=== PATIENT | female | born 2000 | race Caucasian/White ===

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

== ENCOUNTER 2021-02-08 10:11 | Emergency (ER) | payer BC, MEDICAID ==
--- NOTE | 2021-02-08 11:05 | EDM.PDOC ---
ED HPI GENERAL MEDICAL PROBLEM - General Chief Complaint: Cardiovascular Problem Stated Complaint: CHILLS Time Seen by Provider: 02/08/21 10:52 Source of Information: Reports: Patient, RN Notes Reviewed - History of Present Illness INITIAL COMMENTS - FREE TEXT/NARRATIVE: 20 yr old female has been sent over from the [facility] unit after starting to have some chills this morning during her dialysis run. It is reported that the nailbeds of her L hand became dusky. She was not having chest pain or difficulty breathing. She has also started to have a mild cough today. No abd pain, nausea, vomiting or diarrhea. - Related Data Allergies Allergy/AdvReac Type Severity Reaction Status Date / Time Latex, Natural Rubber Allergy Severe only as Verified 02/08/21 10:50 precaution due to numerous surgeries chlorhexidine Allergy Intermediate Rash Verified 02/08/21 10:50 Sulfa (Sulfonamide Allergy Intermediate Rash Verified 02/08/21 10:50 Antibiotics) Home Meds: Home Meds polyethylene glycoL 3350 [MiraLAX] 17 gm PO BEDTIME PRN 08/31/13 [History] Labetalol [Normodyne] 100 mg PO DAILY 04/17/20 [History] Cholecalciferol (Vitamin D3) [Vitamin D] 5,000 unit PO DAILY 05/31/20 [History] Amoxicillin 500 mg PO ASDIRECTED 09/15/20 [History] Fluticasone Propionate [Flonase] 16 gm NS DAILY 09/15/20 [History] Ondansetron [Zofran] 4 mg PO ASDIRECTED 09/15/20 [History] lamoTRIgine [Lamictal] 125 mg PO DAILY 09/15/20 [History] traZODone HCl [Trazodone HCl] 50 mg PO BEDTIME 09/15/20 [History] Past Medical History HEENT History: Reports: Impaired Vision Other HEENT History: Wears glasses, cleft lip and palate Cardiovascular History: Reports: Hypertension Genitourinary History: Reports: Chronic Renal Insuffiency, Dialysis, Other (See Below) Other Genitourinary History: Anatoliy and matrofinof Neurological History: Reports: Seizure, Other (See Below) 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 Denies: Fever HEENT: Reports: No Symptoms Respiratory: Reports: Cough (mild occasional). Denies: Shortness of Breath, Pleuritic Chest Pain Cardiovascular: Denies: Chest Pain GI/Abdominal: Denies: Abdominal Pain, Nausea, Vomiting Musculoskeletal: Reports: No Symptoms Skin: Denies: Rash Neurological: Reports: No Symptoms ED EXAM, GENERAL - Physical Exam Exam: See Below General Appearance: Alert, No Apparent Distress Head: Atraumatic Neck: Supple, Other Respiratory/Chest: No Respiratory Distress, Lungs Clear, Normal Breath Sounds. No: Rhonchi, Wheezing Cardiovascular: Tachycardia Extremities: Normal Inspection. No: Pedal Edema, Leg Pain Skin Exam: Warm, Dry, Normal Color Course - Vital Signs Last Recorded V/S: Last Vital Signs Temp 98.4 F 02/08/21 10:47 Pulse 118 H 02/08/21 10:47 Resp 18 02/08/21 10:47 BP 109/64 02/08/21 10:47 Pulse Ox 98 02/08/21 10:47 - Orders/Labs/Meds Orders: Active Orders 24 hr Category Date Time Status BLOOD CULTURE [MREF] Stat Lab 02/08/21 11:46 Received CRP [C-REACTIVE PROTEIN] [CHEM] Routine Lab 02/08/21 11:46 Received Labs: Laboratory Tests 02/08/21 02/08/21 02/08/21 Range/Units 11:17 11:46 11:46 WBC 3.82 L (3.98-10.04) K/mm3 RBC 3.62 L (3.98-5.22) M/mm3 Hgb 10.7 L D (11.2-15.7) gm/dl Hct 33.8 L (34.1-44.9) % MCV 93.4 D (79.4-94.8) fl MCH 29.6 (25.6-32.2) pg MCHC 31.7 L (32.2-35.5) g/dl RDW Std Deviation 40.9 (36.4-46.3) fL Plt Count 168 L D (182-369) K/mm3 MPV 9.2 L (9.4-12.3) fl Neut % (Auto) 88.8 H (34.0-71.1) % Lymph % (Auto) 6.5 L (19.3-51.7) % [place] % (Auto) 4.7 (4.7-12.5) % Eos % (Auto) 0 L (0.7-5.8) Baso % (Auto) 0.0 L (0.1-1.2) % Neut # (Auto) 3.39 (1.56-6.13) K/mm3 Lymph # (Auto) 0.25 L (1.18-3.74) K/mm3 [place] # (Auto) 0.18 L (0.24-0.36) K/mm3 Eos # (Auto) 0.00 L (0.04-0.36) K/mm3 Baso # (Auto) 0.00 L (0.01-0.08) K/mm3 Sodium 140 (136-145) mEq/L Potassium 3.5 (3.5-5.1) mEq/L Chloride 98 (98-107) mEq/L Carbon Dioxide 31 (21-32) mEq/L Anion Gap 14.5 (5-15) BUN 16 (7-18) mg/dL Creatinine 2.7 H D (0.55-1.02) mg/dL Est Cr Clr Drug Dosing 31.37 mL/min Estimated GFR (MDRD) 23 (>60) mL/min BUN/Creatinine Ratio 5.9 L (14-18) Glucose 83 (70-99) mg/dL Calcium 8.8 (8.5-10.1) mg/dL Total Bilirubin 0.6 (0.2-1.0) mg/dL AST 16 (15-37) U/L ALT 21 (14-59) U/L Alkaline Phosphatase 76 (46-116) U/L Total Protein 6.8 (6.4-8.2) g/dl Albumin 3.8 (3.4-5.0) g/dl Globulin 3.0 gm/dL Albumin/Globulin Ratio 1.3 (1-2) SARS-CoV-2 RNA (BLAZE) Positive H (NEGATIVE) - Re-Assessments/Exams Free Text/Narrative Re-Assessment/Exam: 02/08/21 12:57 her covid screen has come back positive. She is in no respiratory distress here in the ED. Sats are running 99 %. CXR shows possible what looks like slight infiltrate L lower lobe. Radiologist is also reporting slight density R mid and lower lungfield. Labs otherwise relatively OK. I have offered her IV antibody treatment, she declines. We will let [facility] know so they can be aware. Departure - Departure Time of Disposition: 12:58 Disposition: Home, Self-Care 01 Condition: Fair Clinical Impression: COVID-19 virus infection Instructions: COVID-19 Referrals: Shirlene Sutton PA-C [Primary Care Provider] - Forms: ED Department Discharge Additional Instructions: Your covid screen has come back positive. Self isolate for at least 10 days, 14 preferable. Continue dialysis on your regular schedule. If you decide you want to get the IV antibody therapy call ED to check on availability before coming but that is an option for you, best to get that early in the course of your illness rather than wait until later. Return to ED as needed, especially for difficulty breathing. Sepsis Event Note (ED) - Evaluation Sepsis Screening Result: No Definite Risk - Focused Exam Vital Signs: Vital Signs Temp Pulse Resp BP Pulse Ox 02/08/21 10:47 98.4 F 118 H 18 109/64 98 - My Orders Last 24 Hours: My Active Orders 02/08/21 11:46 BLOOD CULTURE [MREF] Stat CRP [C-REACTIVE PROTEIN] [CHEM] Routine - Assessment/Plan Last 24 Hours: My Active Orders 02/08/21 11:46 BLOOD CULTURE [MREF] Stat CRP [C-REACTIVE PROTEIN] [CHEM] Routine
--- NOTE | 2021-02-08 11:26 | CR ---
Chest: Portable view of the chest was obtained. Comparison: Prior chest x-ray of 05/31/20. Heart size and mediastinum are within normal limits. Possible early parenchymal change is seen at the left base as well as within the right mid and lower lung. Lungs otherwise are clear. Bony structures show nothing acute. Impression: 1. Possible early parenchymal change within the right mid and lower lung and left lower lung. Difficult to exclude mild areas of early pneumonia. Diagnostic code #3
== END 2021-02-08 13:35 | disposition home or self-care (01) ==
LOC: JD.ED 10:11
DX: U07.1 COVID-19 (principal); I12.9 Hypertensive chronic kidney disease with stage 1 through stage 4 chronic kidney disease, or unspecified chronic kidney disease; N18.9 Chronic kidney disease, unspecified; Z91.040 Latex allergy status; Z88.2 Allergy status to sulfonamides; Z88.8 Allergy status to other drugs, medicaments and biological substances; Z79.899 Other long term (current) drug therapy
CPT/HCPCS: 36415; 71045; 71045-26; 80053; 85025; 86140; 87040; 99283-25; U0002

== ENCOUNTER 2021-02-10 07:21 | Emergency (ER) | payer BC, MEDICAID ==
[2021-02-10] MEDS ORDERED: methylPREDNISolone Sodium Succinate 125 MG/2 ML SDV IVPUSH PRN (07:53)
[2021-02-10] MEDS ORDERED: diphenhydrAMINE 50 MG/ML SDV IVPUSH PRN (07:53)
[2021-02-10] MEDS ORDERED: EPINEPHrine 1 MG/ML SDV IM PRN (07:53)
[2021-02-10] MEDS ORDERED: Famotidine 20 MG/2 ML SDV IVPUSH PRN (07:53)
--- NOTE | 2021-02-10 07:57 | EDM.PDOC ---
ED HPI GENERAL MEDICAL PROBLEM - General Chief Complaint: Respiratory Problem Stated Complaint: COVID +/REQUESTING INFUSION Time Seen by Provider: 02/10/21 07:45 Source of Information: Reports: Patient History Limitations: Reports: No Limitations - History of Present Illness INITIAL COMMENTS - FREE TEXT/NARRATIVE: Patient 20-year-old female presenting to the emergency room for antibiotic infusion. Patient has a past medical history of chronic kidney disease and is on hemodialysis. Patient is on a Sunday schedule. Last dialysis was done on Sunday. Patient was here on February 08 when she tested positive for Covid after developing chills during her dialysis session. Patient states she started feeling some increasing shortness of breath last night denies any chest pain. Otherwise, patient complains of fatigue and generalized weakness. - Related Data Allergies Allergy/AdvReac Type Severity Reaction Status Date / Time chlorhexidine Allergy Severe Rash Verified 02/10/21 07:37 Latex, Natural Rubber Allergy Severe only as Verified 02/10/21 07:37 precaution due to numerous surgeries Sulfa (Sulfonamide Allergy Severe Rash Verified 02/10/21 07:37 Antibiotics) Chloraprep Allergy Severe Rash Uncoded 02/10/21 07:37 Home Meds: Home Meds polyethylene glycoL 3350 [MiraLAX] 17 gm PO BEDTIME PRN 08/31/13 [History] Labetalol [Normodyne] 100 mg PO DAILY 04/17/20 [History] Fluticasone Propionate [Flonase] 16 gm NS DAILY 09/15/20 [History] Ondansetron [Zofran] 4 mg PO ASDIRECTED 09/15/20 [History] lamoTRIgine [Lamictal] 125 mg PO DAILY 09/15/20 [History] traZODone HCl [Trazodone HCl] 50 mg PO BEDTIME 09/15/20 [History] Non-Formulary Medication [NF Drug] 0 ml .XX BEDTIME 02/10/21 [History] Past Medical History HEENT History: Reports: Impaired Vision Other HEENT History: Wears glasses, cleft lip and palate Cardiovascular History: Reports: Hypertension Genitourinary History: Reports: Chronic Renal Insuffiency, Dialysis, Other (See Below) Other Genitourinary History: Anatoliy and matrofinof Neurological History: Reports: Seizure, Other (See Below) Other Neuro History: 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, Spina bifida, epilepsy Hematologic History: Reports: Blood Transfusion(s) - Infectious Disease History Infectious Disease History: Reports: Novel Coronavirus - Past Surgical History HEENT Surgical History: Reports: Myringotomy w Tube(s) GI Surgical History: Reports: EGD Social & Family History - Family History Family Medical History: No Pertinent Family History - Tobacco Use Tobacco Use Status *Q: Never Tobacco User - Caffeine Use Caffeine Use: Reports: Energy Drinks, Soda - Recreational Drug Use Recreational Drug Use: No - Living Situation & Occupation Occupation: Student ED ROS GENERAL - Review of Systems Review Of Systems: See Below Free Text/Narrative/Comment: In addition to that documented in the HPI above, the additional ROS was obtained: Constitutional: Positive for fevers or chills Eyes: Denies vision changes ENMT: Denies sore throat CV: Denies chest pain Resp: Per HPI GI: Denies vomiting or diarrhea : Denies painful urination MSK: Denies recent trauma Skin: Denies new rashes Neuro: Denies new numbness or tingling or weakness Endocrine: Denies unexpected weight loss Heme: Denies bleeding disorders ED EXAM, GENERAL - Physical Exam Exam: See Below Free Text/Narrative:: I have reviewed the triage vital signs. Pulse oxygenation is 100% on room air indicating adequate oxygenation. Const: Well nourished, well developed, appears stated age Eyes: Pupils Equal and reactive to light bilaterally, no conjunctival injection HENT: No signs of trauma or swelling, Neck supple without meningismus CV: Tachycardia with regular rhythm, Warm, well-perfused extremities RESP: Unlabored respiratory effort GI: soft, non-tender, non-distended, no masses MSK: No gross deformities appreciated Skin: Warm, dry. 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 Sensation and motor function of extremities grossly intact. Psych: Appropriate mood and affect. #1 Interpretation EKG Date: 02/10/21 Time: 08:10 Rhythm: NSR Rate (Beats/Min): 116 [place]: RAD-Right [place] Deviation P-Wave: Present QRS: Normal ST-T: Normal QT: Normal Comparison: NA - No Prior EKG Course - Vital Signs Last Recorded V/S: Last Vital Signs Temp 36.6 C 02/10/21 07:33 Pulse 117 H 02/10/21 09:00 Resp 16 02/10/21 09:00 BP 131/85 02/10/21 09:00 Pulse Ox 97 02/10/21 09:00 - Orders/Labs/Meds Orders: Active Orders 24 hr Category Date Time Status Vital Signs [RC] Q15M Care 02/10/21 07:54 Active EPINEPHrine [Adrenalin] Med 02/10/21 07:53 Active 0.3 mg IM ONETIME PRN Famotidine [Pepcid] Med 02/10/21 07:53 Active 20 mg IVPUSH ONETIME PRN Sodium Chloride 0.9% [Saline Flush] Med 02/10/21 08:00 Active 30 ml FLUSH ASDIRECTED diphenhydrAMINE [Benadryl] Med 02/10/21 07:53 Active 50 mg IVPUSH ONETIME PRN methylPREDNISolone Sod Succ [Solu-MEDROL] Med 02/10/21 07:53 Active 125 mg IVPUSH ONETIME PRN Medication Orders Diphenhydramine HCl (Diphenhydramine 50 Mg/Ml Sdv) 50 mg IVPUSH ONETIME PRN PRN Reason: hypersensitivity reaction Epinephrine HCl (Epinephrine 1 Mg/Ml Sdv) 0.3 mg IM ONETIME PRN PRN Reason: hypersensitivity reaction Famotidine (Famotidine 20 Mg/2 Ml Sdv) 20 mg IVPUSH ONETIME PRN PRN Reason: hypersensitivity reaction Methylprednisolone Sodium Succinate (Methylprednisolone Sodium Succinate 125 Mg/2 Ml Sdv) 125 mg IVPUSH ONETIME PRN PRN Reason: hypersensitivity reaction Sodium Chloride (Sodium Chloride 0.9% 10 Ml Syringe) 30 ml FLUSH ASDIRECTED JONATHAN Labs: Laboratory Tests 02/10/21 02/10/21 02/10/21 Range/Units 07:55 07:55 07:55 WBC 2.71 L (3.98-10.04) K/mm3 RBC 3.63 L (3.98-5.22) M/mm3 Hgb 10.9 L (11.2-15.7) gm/dl Hct 35.3 (34.1-44.9) % MCV 97.2 H D (79.4-94.8) fl MCH 30.0 (25.6-32.2) pg MCHC 30.9 L (32.2-35.5) g/dl RDW Std Deviation 43.8 (36.4-46.3) fL Plt Count 142 L (182-369) K/mm3 MPV 9.8 (9.4-12.3) fl Neut % (Auto) 80.1 H (34.0-71.1) % Lymph % (Auto) 12.5 L (19.3-51.7) % [place] % (Auto) 7.4 (4.7-12.5) % Eos % (Auto) 0 L (0.7-5.8) Baso % (Auto) 0.0 L (0.1-1.2) % Neut # (Auto) 2.17 (1.56-6.13) K/mm3 Lymph # (Auto) 0.34 L (1.18-3.74) K/mm3 [place] # (Auto) 0.20 L (0.24-0.36) K/mm3 Eos # (Auto) 0.00 L (0.04-0.36) K/mm3 Baso # (Auto) 0.00 L (0.01-0.08) K/mm3 PT 10.3 (9.7-12.0) SECONDS INR 0.93 Sodium 138 (136-145) mEq/L Potassium 3.6 (3.5-5.1) mEq/L Chloride 99 (98-107) mEq/L Carbon Dioxide 26 (21-32) mEq/L Anion Gap 16.6 H (5-15) BUN 39 H (7-18) mg/dL Creatinine 6.1 H D (0.55-1.02) mg/dL Est Cr Clr Drug Dosing 11.73 mL/min Estimated GFR (MDRD) 9 (>60) mL/min BUN/Creatinine Ratio 6.4 L (14-18) Glucose 102 H (70-99) mg/dL Calcium 8.6 (8.5-10.1) mg/dL Total Bilirubin 0.4 (0.2-1.0) mg/dL AST 26 (15-37) U/L ALT 30 (14-59) U/L Alkaline Phosphatase 76 (46-116) U/L Total Protein 6.7 (6.4-8.2) g/dl Albumin 3.7 (3.4-5.0) g/dl Globulin 3.0 gm/dL Albumin/Globulin Ratio 1.2 (1-2) Meds: Medications Generic Name Dose Route Start Last Admin Trade Name Freq PRN Reason Stop Dose Admin Diphenhydramine HCl 50 mg 02/10/21 07:53 Diphenhydramine 50 Mg/Ml Sdv IVPUSH ONETIME PRN hypersensitivity reaction Epinephrine HCl 0.3 mg 02/10/21 07:53 Epinephrine 1 Mg/Ml Sdv IM ONETIME PRN hypersensitivity reaction Famotidine 20 mg 02/10/21 07:53 Famotidine 20 Mg/2 Ml Sdv IVPUSH ONETIME PRN hypersensitivity reaction Methylprednisolone Sodium Succinate 125 mg 02/10/21 07:53 Methylprednisolone Sodium Succinate 125 Mg/2 Ml Sdv IVPUSH ONETIME PRN hypersensitivity reaction Sodium Chloride 30 ml 02/10/21 08:00 Sodium Chloride 0.9% 10 Ml Syringe FLUSH ASDIRECTED JONATHAN Discontinued Medications Generic Name Dose Route Start Last Admin Trade Name Freq PRN Reason Stop Dose Admin SOTROVIMAB 500 mg/ Sodium 108 mls @ 216 mls/hr 02/10/21 08:30 02/10/21 08:15 Chloride IV 02/10/21 08:59 216 mls/hr ONETIME ONE Administration Departure - Departure Time of Disposition: 09:37 Disposition: Home, Self-Care 01 Clinical Impression: COVID-19 - Discharge Information *PRESCRIPTION DRUG MONITORING PROGRAM REVIEWED*: Not Applicable *COPY OF PRESCRIPTION DRUG MONITORING REPORT IN PATIENT PINA: Not Applicable Referrals: PCP,None [Primary Care Provider] - Forms: ED Department Discharge Sepsis Event Note (ED) - Evaluation Sepsis Screening Result: No Definite Risk - Focused Exam Vital Signs: Vital Signs Temp Pulse Resp BP Pulse Ox 02/10/21 09:00 117 H 16 131/85 97 02/10/21 08:45 120 H 16 131/84 98 02/10/21 08:30 119 H 18 123/89 94 L 02/10/21 08:15 118 H 16 126/82 94 L 02/10/21 07:33 36.6 C 126 H 18 126/73 100 - My Orders Last 24 Hours: My Active Orders 02/10/21 07:53 EPINEPHrine [Adrenalin] 0.3 mg IM ONETIME PRN Famotidine [Pepcid] 20 mg IVPUSH ONETIME PRN diphenhydrAMINE [Benadryl] 50 mg IVPUSH ONETIME PRN methylPREDNISolone Sod Succ [Solu-MEDROL] 125 mg IVPUSH ONETIME PRN 02/10/21 07:54 Vital Signs [RC] Q15M 02/10/21 08:00 Sodium Chloride 0.9% [Saline Flush] 30 ml FLUSH ASDIRECTED - Assessment/Plan Last 24 Hours: My Active Orders 02/10/21 07:53 EPINEPHrine [Adrenalin] 0.3 mg IM ONETIME PRN Famotidine [Pepcid] 20 mg IVPUSH ONETIME PRN diphenhydrAMINE [Benadryl] 50 mg IVPUSH ONETIME PRN methylPREDNISolone Sod Succ [Solu-MEDROL] 125 mg IVPUSH ONETIME PRN 02/10/21 07:54 Vital Signs [RC] Q15M 02/10/21 08:00 Sodium Chloride 0.9% [Saline Flush] 30 ml FLUSH ASDIRECTED Assessment:: Patient is a 20-year-old female end-stage renal disease presenting for request of antibiotic infusion. Patient needs criteria based on chronic kidney disease. In the emergency room patient demonstrated tachycardia in the 110-115 range. Pulse oxygenation was 100% on room air. No respiratory distress noted. No chest pain reported. Differential diagnosis considered for this patient include Covid pneumonia, pulmonary embolism, pulmonary edema, electrolyte abnormality. Patient patient's underlying diagnosis could be pneumonia as likely etiology of patient's tachycardia. It was noted she was tachycardic on visit on February 08. Electrolytes reviewed did not demonstrate any specific abnormality. Pancytopenia noted consistent with Covid infection. Patient received the antibody infusion without abnormality or difficulty/complication. Dialysis center was called and patient is able to go to dialysis at noon today. No indication for emergent dialysis at this time. Patient given these instructions and appropriate return precautions. I spoke with patient to provide information about antibiotic infusion. I offered them the patient and caregiver EUA back she to read and review state of the drug has been approved for emergency use authorization and has not been fully FDA reviewed or approved. The patient meets the EUA requirements I discussed the other potential treatment options that are currently not FDA approved to treat COVID-19. Offered opportunity to ask questions and all questions were answered Patient voiced understanding and agreed to proceed with treatment for COVID-19
[2021-02-10] MEDS ORDERED: Sodium Chloride 0.9% 10 ML Syringe FLUSH SCH (08:00)
== END 2021-02-10 09:55 | disposition home or self-care (01) ==
LOC: JD.ED 07:21
DX: U07.1 COVID-19 (principal); I12.0 Hypertensive chronic kidney disease with stage 5 chronic kidney disease or end stage renal disease; N18.6 End stage renal disease; R56.9 Unspecified convulsions; Z88.8 Allergy status to other drugs, medicaments and biological substances; Z91.040 Latex allergy status; Z88.2 Allergy status to sulfonamides; Z79.899 Other long term (current) drug therapy
CPT/HCPCS: 36415; 80053; 85025; 85610; 93005; 99285; M0247; Q0247

== ENCOUNTER 2021-03-28 12:43 | Emergency (ER) | payer BC, MEDICAID ==
[2021-03-28] MEDS ORDERED: LORazepam 1 MG Tab PO ONE (14:00)
--- NOTE | 2021-03-28 14:32 | EDM.PDOCBH ---
ED HPI GENERAL MEDICAL PROBLEM - General Chief Complaint: Behavioral/Psych Stated Complaint: ANXIETY Time Seen by Provider: 03/28/21 13:20 Source of Information: Reports: Patient History Limitations: Reports: No Limitations - History of Present Illness INITIAL COMMENTS - FREE TEXT/NARRATIVE: The patient presents for anxiety. This started over a week ago. She was at work and it got worse. She has no depression or suicidal ideation. She was on seroquel but she cannot afford it. She has no other symptoms like fever, chills, cough, chest pain, or abdominal pain. Onset: Gradual Duration: Week(s): Severity: Moderate Improves with: Reports: None Worsens with: Reports: None Associated Symptoms: Reports: No Other Symptoms - Related Data Allergies Allergy/AdvReac Type Severity Reaction Status Date / Time chlorhexidine Allergy Severe Rash Verified 03/28/21 13:21 Latex, Natural Rubber Allergy Severe only as Verified 03/28/21 13:21 precaution due to numerous surgeries Sulfa (Sulfonamide Allergy Severe Rash Verified 03/28/21 13:21 Antibiotics) Chloraprep Allergy Severe Rash Uncoded 03/28/21 13:21 Home Meds: Home Meds polyethylene glycoL 3350 [MiraLAX] 17 gm PO BEDTIME PRN 08/31/13 [History] Labetalol [Normodyne] 100 mg PO DAILY 04/17/20 [History] Fluticasone Propionate [Flonase] 16 gm NS DAILY 09/15/20 [History] Ondansetron [Zofran] 4 mg PO ASDIRECTED 09/15/20 [History] lamoTRIgine [Lamictal] 125 mg PO DAILY 09/15/20 [History] traZODone HCl [Trazodone HCl] 50 mg PO BEDTIME 09/15/20 [History] Non-Formulary Medication [NF Drug] 0 ml .XX BEDTIME 02/10/21 [History] LORazepam [Ativan] 1 mg PO Q8H PRN #10 tablet 03/28/21 [Rx] QUEtiapine Fumarate [Quetiapine Fumarate ER] 25 mg PO ASDIRECTED PRN 03/28/21 [ History] QUEtiapine [SEROquel] 100 mg PO BEDTIME 03/28/21 [History] Testosterone Cypionate 0.5 mg SQ ASDIRECTED 03/28/21 [History] Past Medical History HEENT History: Reports: Impaired Vision Other HEENT History: Wears glasses, cleft lip and palate Cardiovascular History: Reports: Hypertension Respiratory History: Reports: Pneumonia, Recurrent, Other (See Below) Other Respiratory History: COVID Gastrointestinal History: Reports: Cholelithiasis Genitourinary History: Reports: Chronic Renal Insuffiency, Dialysis, Urinary Incontinence, Other (See Below) Other Genitourinary History: Anatoliy and matrofinof Neurological History: Reports: Seizure, Other (See Below) 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 Musculoskeletal Surgical History: Reports: Other (See Below) Other Musculoskeletal Surgeries/Procedures:: bilateral hand surgery. Social & Family History - Family History Family Medical History: No Pertinent Family History - Tobacco Use Tobacco Use Status *Q: Never Tobacco User Second Hand Smoke Exposure: No - Caffeine Use Caffeine Use: Reports: Coffee, Energy Drinks, Soda - Recreational Drug Use Recreational Drug Use: No - Living Situation & Occupation Occupation: Student ED ROS GENERAL - Review of Systems Review Of Systems: See Below Constitutional: Reports: No Symptoms HEENT: Reports: No Symptoms Respiratory: Reports: No Symptoms Cardiovascular: Reports: No Symptoms Endocrine: Reports: No Symptoms GI/Abdominal: Reports: No Symptoms : Reports: No Symptoms Musculoskeletal: Reports: No Symptoms Psychiatric: Reports: Anxiety ED EXAM, BEHAVIORAL HEALTH - Physical Exam Exam: See Below Exam Limited By: No Limitations General Appearance: Alert, No Apparent Distress Ears: Normal External Exam Nose: Normal Inspection Head: Atraumatic, Normocephalic Neck: Normal Inspection Respiratory/Chest: No Respiratory Distress, Lungs Clear, Normal Breath Sounds Cardiovascular: Regular Rate, Rhythm, No Edema, No Murmur GI/Abdominal: Soft, Non-Tender, No Organomegaly Rectal (Female) Exam: Normal Exam Back Exam: Normal Inspection Extremities: Normal Inspection COURSE, BEHAVIORAL HEALTH COMP - Course Vital Signs: Last Vital Signs Temp 97.3 F 03/28/21 13:20 Pulse 80 03/28/21 13:20 Resp 16 03/28/21 13:20 BP 129/79 03/28/21 13:20 Pulse Ox 95 03/28/21 13:20 Orders, Labs, Meds: Medications Discontinued Medications Generic Name Dose Route Start Last Admin Trade Name Freq PRN Reason Stop Dose Admin Lorazepam 1 mg 03/28/21 14:00 03/28/21 14:11 Lorazepam 1 Mg Tab PO 03/28/21 14:01 1 mg ONETIME ONE Administration Re-Assessment/Re-Exam: I ordered some ativan for her. I will give her a few ativan for home. Departure - Departure Time of Disposition: 14:35 Disposition: Home, Self-Care 01 Condition: Good Clinical Impression: Anxiety - Discharge Information *PRESCRIPTION DRUG MONITORING PROGRAM REVIEWED*: Not Applicable *COPY OF PRESCRIPTION DRUG MONITORING REPORT IN PATIENT PINA: Not Applicable Prescriptions: LORazepam [Ativan] 1 mg PO Q8H PRN #10 tablet PRN Reason: Anxiety Referrals: PCP,None [Primary Care Provider] - Additional Instructions: Take the ativan every 8 hours as needed for anxiety. Follow up with your counselor before April 15 if possible. Please return if you are worse. Sepsis Event Note (ED) - Evaluation Sepsis Screening Result: No Definite Risk - Focused Exam Vital Signs: Vital Signs Temp Pulse Resp BP Pulse Ox 03/28/21 13:20 97.3 F 80 16 129/79 95
== END 2021-03-28 14:45 | disposition home or self-care (01) ==
LOC: JD.ED 12:43
DX: F41.9 Anxiety disorder, unspecified (principal); I12.9 Hypertensive chronic kidney disease with stage 1 through stage 4 chronic kidney disease, or unspecified chronic kidney disease; N18.9 Chronic kidney disease, unspecified; Z88.5 Allergy status to narcotic agent; Z88.2 Allergy status to sulfonamides; Z91.040 Latex allergy status; Z88.4 Allergy status to anesthetic agent; Z86.16 Personal history of COVID-19
CPT/HCPCS: 99283; A9270

== ENCOUNTER 2021-05-05 12:10 | Emergency (ER) | payer BC, MEDICAID | END 2021-05-05 12:50 | disposition left against medical advice (07) | LOC: JD.ED 12:10 | DX: Z53.21 Procedure and treatment not carried out due to patient leaving prior to being seen by health care provider (principal) ==

== ENCOUNTER 2021-06-06 16:02 | Emergency (ER) | payer BC, MEDICAID ==
[2021-06-06] MEDS ORDERED: LORazepam 0.5 MG Tab PO ONE (17:08)
== END 2021-06-06 18:45 | disposition home or self-care (01) ==
LOC: JD.ED 16:02
DX: F41.9 Anxiety disorder, unspecified (principal); I10 Essential (primary) hypertension; Z86.16 Personal history of COVID-19; Z91.040 Latex allergy status; Z88.2 Allergy status to sulfonamides; Z88.8 Allergy status to other drugs, medicaments and biological substances; Z79.899 Other long term (current) drug therapy
CPT/HCPCS: 71045; 93005; 99283; A9270; 93010

== ENCOUNTER 2021-06-22 13:38 | Emergency (ER) | payer BC, MEDICAID ==
[2021-06-22] MEDS ORDERED: Sodium Chloride 0.9% 10 ML Syringe FLUSH PRN (15:40)
[2021-06-22] MEDS ORDERED: Ondansetron 4 MG/2 ML SDV IVPUSH ONE (15:40)
[2021-06-22] MEDS ORDERED: HYDROmorphone 1 MG/ML Syringe IVPUSH STA (15:40)
[2021-06-22] MEDS ORDERED: Sodium Chloride 0.9% 1,000 ML IV SCH (15:45)
[2021-06-22] MEDS ORDERED: Iopamidol 612 MG/ML 100 ML Bottle IVPUSH ONE (15:47)
[2021-06-22] MEDS ORDERED: Sodium Chloride 0.9% 10 ML Syringe FLUSH ONE (15:47)
== END 2021-06-22 17:43 | disposition home or self-care (01) ==
LOC: JD.ED 13:38
DX: K82.9 Disease of gallbladder, unspecified (principal); I12.9 Hypertensive chronic kidney disease with stage 1 through stage 4 chronic kidney disease, or unspecified chronic kidney disease; N18.9 Chronic kidney disease, unspecified; Z88.1 Allergy status to other antibiotic agents; Z91.040 Latex allergy status; Z88.2 Allergy status to sulfonamides; Z99.2 Dependence on renal dialysis
CPT/HCPCS: 36415; 74177; 80053; 81001; 82977; 83690; 85025; 86140; 96374; 96375; 99284; J1170; J2405; J7030; Q9967

== ENCOUNTER 2021-07-27 10:18 | Emergency (ER) | payer BC, MEDICAID | END 2021-07-27 11:54 | disposition home or self-care (01) | LOC: JD.ED 10:18 | DX: T42.4X2A Poisoning by benzodiazepines, intentional self-harm, initial encounter (principal); I12.9 Hypertensive chronic kidney disease with stage 1 through stage 4 chronic kidney disease, or unspecified chronic kidney disease; N18.9 Chronic kidney disease, unspecified; Z91.040 Latex allergy status; Z88.2 Allergy status to sulfonamides; Z88.8 Allergy status to other drugs, medicaments and biological substances; Z86.16 Personal history of COVID-19 | CPT/HCPCS: 99284 ==

== ENCOUNTER 2021-12-17 11:38 | Emergency (ER) | payer BC, MEDICAID ==
[2021-12-17] MEDS ORDERED: Sodium Chloride 0.9% 10 ML Syringe FLUSH PRN (12:02)
== END 2021-12-17 13:34 | disposition home or self-care (01) ==
LOC: JD.ED 11:38
DX: R56.9 Unspecified convulsions (principal); F17.210 Nicotine dependence, cigarettes, uncomplicated; Z91.040 Latex allergy status; Z88.8 Allergy status to other drugs, medicaments and biological substances; Z88.2 Allergy status to sulfonamides; Z79.899 Other long term (current) drug therapy; Z86.16 Personal history of COVID-19
CPT/HCPCS: 36415; 80053; 83735; 85025; 93005; 99284; J3490

== ENCOUNTER 2022-01-22 00:10 | Emergency (ER) | payer BC, MEDICAID | END 2022-01-22 00:19 | disposition left against medical advice (07) | LOC: EDSEX → JD.ED 00:10 → MERGE 00:10 → JD.ED 00:19 | DX: Z53.21 Procedure and treatment not carried out due to patient leaving prior to being seen by health care provider (principal) ==

== ENCOUNTER 2022-01-22 11:07 | Emergency (ER) | payer BC, MEDICAID ==
[2022-01-22 12:28] LABS: ESTIMATED GFR 8 mL/min (>60)
== END 2022-01-22 13:10 | disposition home or self-care (01) ==
LOC: JD.ED 11:07
DX: R07.89 Other chest pain (principal); Z91.040 Latex allergy status; Z88.8 Allergy status to other drugs, medicaments and biological substances; Z88.2 Allergy status to sulfonamides; Z79.899 Other long term (current) drug therapy; Z86.16 Personal history of COVID-19
CPT/HCPCS: 36415; 71045; 71045-26; 80053; 84484; 85025; 93005; 93010; 99284; 99285

== ENCOUNTER 2022-01-25 07:40 | Emergency (ER) | payer BC, MEDICAID ==
[2022-01-25] MEDS ORDERED: Alum Hydrox/Mag Hydrox/Simeth 30 ML, Lidocaine 2% 15 ML PO ONE ×2 (08:19)
[2022-01-25] MEDS ORDERED: Famotidine 10 MG Tab PO ONE (08:19)
[2022-01-25] MEDS ORDERED: Famotidine 20 MG Tab ONE (08:24)
[2022-01-25] MEDS ORDERED: Lidocaine 2% Viscous Solution 15 ML UD ONE (08:24)
[2022-01-25] MEDS ORDERED: Aluminum Hydroxide/Magnesium Hydroxide/Simethicone Susp 30 ML Cup ONE (08:24)
== END 2022-01-25 10:40 | disposition home or self-care (01) ==
LOC: JD.ED 07:40
DX: N39.0 Urinary tract infection, site not specified (principal); I10 Essential (primary) hypertension; Z91.040 Latex allergy status; Z88.8 Allergy status to other drugs, medicaments and biological substances; Z88.2 Allergy status to sulfonamides; Z88.1 Allergy status to other antibiotic agents; Z79.899 Other long term (current) drug therapy; Z86.16 Personal history of COVID-19; Z90.49 Acquired absence of other specified parts of digestive tract
CPT/HCPCS: 36415; 74176; 80053; 81001; 83690; 85025; 99284; A9270; 87086; 87088; 87186

== ENCOUNTER 2022-01-29 18:21 | Emergency (ER) | payer BC, MEDICAID ==
[2022-01-29 19:16] LABS: CORONAVIRUS COVID-19 NAA NEGATIVE (NEGATIVE)
[2022-01-29] MEDS ORDERED: Amoxicillin 500 MG Cap PO ONE (19:32)
== END 2022-01-29 19:54 | disposition home or self-care (01) ==
LOC: JD.ED 18:21
DX: J18.9 Pneumonia, unspecified organism (principal); I12.0 Hypertensive chronic kidney disease with stage 5 chronic kidney disease or end stage renal disease; N18.6 End stage renal disease; Z99.2 Dependence on renal dialysis; Z91.040 Latex allergy status; Z88.8 Allergy status to other drugs, medicaments and biological substances; Z88.2 Allergy status to sulfonamides; Z79.899 Other long term (current) drug therapy; Z20.822 Contact with and (suspected) exposure to COVID-19
CPT/HCPCS: 0241U; 71045; 99283; A9270; 99284

== ENCOUNTER 2022-04-07 10:11 | Emergency (ER) | payer BC, MEDICARE, MEDICAID ==
[2022-04-07] MEDS ORDERED: Sodium Chloride 0.9% 10 ML Syringe FLUSH PRN (11:15)
[2022-04-07] MEDS ORDERED: Sodium Chloride 0.9% 1,000 ML IV STA (11:15)
[2022-04-07] MEDS ORDERED: Ondansetron 4 MG/2 ML SDV IVPUSH ONE (11:15)
[2022-04-07] MEDS ORDERED: Sodium Bicarbonate 150 MEQ in Dextrose 5% in Water 1,000 ML IV ONE ×2 (13:41)
[2022-04-07 14:48] LABS: CORONAVIRUS COVID-19 NAA NEGATIVE (NEGATIVE)
== END 2022-04-07 16:00 ==
LOC: JD.ED 10:11
DX: I12.0 Hypertensive chronic kidney disease with stage 5 chronic kidney disease or end stage renal disease (principal); N18.6 End stage renal disease; Z91.040 Latex allergy status; Z88.8 Allergy status to other drugs, medicaments and biological substances; Z88.2 Allergy status to sulfonamides; Z79.899 Other long term (current) drug therapy; Z20.822 Contact with and (suspected) exposure to COVID-19
CPT/HCPCS: 0241U; 36415; 80053; 83605; 85025; 86140; 96365; 96375; 99285; J2405; J3490; J7030; J7060

== ENCOUNTER 2022-06-06 22:02 | Emergency (ER) | payer BC, MEDICARE, MEDICAID ==
[2022-06-06] MEDS ORDERED: Sodium Chloride 0.9% 1,000 ML IV ONE (22:41)
[2022-06-06] MEDS ORDERED: Loperamide 2 MG Cap PO STA (22:41)
[2022-06-06] MEDS ORDERED: Ondansetron 4 MG/2 ML SDV IVPUSH ONE (22:41)
[2022-06-07] MEDS ORDERED: HYDROmorphone 0.5 MG/0.5 ML Syringe IVPUSH ONE (01:35)
[2022-06-07] MEDS ORDERED: Ondansetron 4 MG/2 ML SDV IVPUSH ONE (01:35)
== END 2022-06-07 03:00 | disposition home or self-care (01) ==
LOC: JD.ED 22:02
DX: K52.9 Noninfective gastroenteritis and colitis, unspecified (principal); I10 Essential (primary) hypertension; Z86.16 Personal history of COVID-19; Z91.040 Latex allergy status; Z88.2 Allergy status to sulfonamides; Z88.1 Allergy status to other antibiotic agents; Z88.5 Allergy status to narcotic agent; Z79.899 Other long term (current) drug therapy
CPT/HCPCS: 36415; 80053; 81001; 83605; 83690; 83735; 85007; 85027; 86140; 87086; 96361; 96374; 96375; 96376; 99284; A9270; J1170; J2405; J7030

== ENCOUNTER 2022-07-03 20:40 | Emergency (ER) | payer BC, MEDICAID ==
[2022-07-03] MEDS ORDERED: Acetaminophen 325 MG Tab PO ONE (21:14)
[2022-07-03] MEDS ORDERED: Dextrose 5%-0.9% NaCl 1,000 ML IV SCH (21:15)
[2022-07-03] MEDS ORDERED: HYDROmorphone 0.5 MG/0.5 ML Syringe IVPUSH ONE (22:08)
[2022-07-03] MEDS ORDERED: Metoclopramide 10 MG/2 ML SDV IVPUSH ONE (22:08)
[2022-07-03] MEDS ORDERED: diphenhydrAMINE 50 MG/ML SDV IVPUSH ONE (22:08)
[2022-07-03] MEDS ORDERED: cefTRIAXone 2 GM in Sodium Chloride 0.9% 100 ML IV ONE (22:09)
== END 2022-07-04 00:11 | disposition home or self-care (01) ==
LOC: JD.ED 20:40
DX: I35.0 Nonrheumatic aortic (valve) stenosis (principal); I11.0 Hypertensive heart disease with heart failure; I50.9 Heart failure, unspecified; L13.1 Subcorneal pustular dermatitis; N39.0 Urinary tract infection, site not specified; D72.829 Elevated white blood cell count, unspecified; Z91.040 Latex allergy status; Z88.2 Allergy status to sulfonamides; Z88.8 Allergy status to other drugs, medicaments and biological substances; Z79.899 Other long term (current) drug therapy; Z86.16 Personal history of COVID-19; Z90.49 Acquired absence of other specified parts of digestive tract
CPT/HCPCS: 36415; 71045; 80053; 81001; 83605; 83735; 83880; 85025; 85652; 86140; 87040; 96361; 96365; 99283; A9270; J0696; J1170; J1200; J2765; J7042; 99284

== ENCOUNTER 2022-07-20 13:19 | Emergency (ER) | payer BC, MEDICAID ==
[2022-07-20] MEDS ORDERED: Cefdinir 300 MG Cap PO ONE (17:19)
== END 2022-07-20 17:29 | disposition home or self-care (01) ==
LOC: JD.ED 13:19
DX: N39.0 Urinary tract infection, site not specified (principal); I10 Essential (primary) hypertension; Z86.16 Personal history of COVID-19; Z88.2 Allergy status to sulfonamides; Z91.040 Latex allergy status; Z88.1 Allergy status to other antibiotic agents; Z88.5 Allergy status to narcotic agent; Z79.899 Other long term (current) drug therapy
CPT/HCPCS: 36415; 80053; 81001; 85025; 87086; 99283; A9270

== ENCOUNTER 2022-08-28 13:07 | Emergency (ER) | payer BC, MEDICAID ==
[2022-08-28] MEDS ORDERED: Sodium Chloride 0.9% 10 ML Syringe FLUSH PRN (13:59)
[2022-08-28] MEDS ORDERED: Ondansetron 4 MG/2 ML SDV IVPUSH ONE (13:59)
[2022-08-28] MEDS ORDERED: Sodium Chloride 0.9% 1,000 ML IV SCH ×2 (14:00→17:30)
[2022-08-28] MEDS ORDERED: HYDROmorphone 0.5 MG/0.5 ML Syringe IVPUSH ONE (14:28)
[2022-08-28] MEDS ORDERED: cefTRIAXone 1 GM in Sodium Chloride 0.9% 100 ML IV ONE (15:46)
== END 2022-08-28 18:21 ==
LOC: JD.ED 13:07
DX: I12.0 Hypertensive chronic kidney disease with stage 5 chronic kidney disease or end stage renal disease (principal); N18.6 End stage renal disease; N19 Unspecified kidney failure; F32.A Depression, unspecified; N39.0 Urinary tract infection, site not specified; Z88.2 Allergy status to sulfonamides; Z88.1 Allergy status to other antibiotic agents; Z91.040 Latex allergy status
CPT/HCPCS: 36415; 80053; 81001; 83605; 83735; 84703; 85025; 87040; 96361; 96365; 96375; 99285; J0696; J1170; J2405; J3490; J7030

== ENCOUNTER 2022-09-29 07:00 | Emergency (ER) | payer BC, MEDICAID | END 2022-09-29 08:15 | disposition home or self-care (01) | LOC: JD.ED 07:00 | DX: L03.313 Cellulitis of chest wall (principal); I10 Essential (primary) hypertension; Z86.16 Personal history of COVID-19; Z91.040 Latex allergy status; Z88.5 Allergy status to narcotic agent; Z88.2 Allergy status to sulfonamides; Z88.1 Allergy status to other antibiotic agents | CPT/HCPCS: 99283; 99284 ==

== ENCOUNTER 2022-10-13 20:44 | Emergency (ER) | payer BC, MEDICARE, MEDICAID ==
[2022-10-13 21:11] LABS: BASOPHILS ABSOLUTE AUTO 0.03 K/mm3 (0.01-0.08); BASOPHILS PERCENT AUTO 0.5 % (0.1-1.2); EOSINOPHILS ABSOLUTE AUTO 0.26 K/mm3 (0.04-0.36); EOSINOPHILS PERCENT AUTO 4.5 (0.7-5.8); HEMATOCRIT 35.1 % (34.1-44.9); HEMOGLOBIN 11.1 gm/dl (11.2-15.7); LYMPHOCYTES ABSOLUTE AUTO 1.96 K/mm3 (1.18-3.74); LYMPHOCYTES PERCENT AUTO 33.9 % (19.3-51.7); MEAN CORPUSCULAR HEMOGLOBIN 29.2 pg (25.6-32.2); MEAN CORPUSCULAR HGB CONC 31.6 g/dl (32.2-35.5); MEAN CORPUSCULAR VOLUME 92.4 fl (79.4-94.8); MEAN PLATELET VOLUME 9.1 fl (9.4-12.3); MONOCYTES ABSOLUTE AUTO 0.41 K/mm3 (0.24-0.36); MONOCYTES PERCENT AUTO 7.1 % (4.7-12.5); NEUTROPHILS ABSOLUTE AUTO 3.13 K/mm3 (1.56-6.13); PLATELET COUNT,PLT 176 K/mm3 (182-369); WHITE BLOOD CELL COUNT,WBC 5.79 K/mm3 (3.98-10.04)
[2022-10-13 21:32] LABS: A/G RATIO 1.5 (1-2); ALANINE AMINOTRANSFERASE,ALT 19 U/L (14-59); ALBUMIN 4.1 g/dl (3.4-5.0); ALKALINE PHOSPHATASE 112 U/L (46-116); ANION GAP 12.9 (5-15); ASPARTATE AMNIOTRANSFERASE,AST 19 U/L (15-37); BILIRUBIN TOTAL 0.9 mg/dL (0.2-1.0); BLOOD UREA NITROGEN,BUN 25 mg/dL (7-18); BUN/CREATININE RATIO 5.4 (14-18); C-REACTIVE PROTEIN <0.2 mg/dL (<1.0); CARBON DIOXIDE,CO2 28 mEq/L (21-32); CHLORIDE,CL 104 mEq/L (98-107); CREATININE 4.6 mg/dL (0.55-1.02); ESTIMATED GFR 13 mL/min (>60); GLUCOSE RANDOM 77 mg/dL (70-99); POTASSIUM,K 3.9 mEq/L (3.5-5.1); PROTEIN TOTAL,TP 6.9 g/dl (6.4-8.2); SODIUM,NA 141 mEq/L (136-145)
[2022-10-13 21:48] LABS: APPEARANCE,URINE CLEAR (Clear); BILIRUBIN,URINE NEGATIVE (Negative); COLOR,URINE YELLOW (Yellow); GLUCOSE,URINE NEGATIVE (Negative); KETONES,URINE NEGATIVE (Negative); LEUKOCYTE ESTERASE,URINE 1+ (Negative); NITRITE,URINE NEGATIVE (Negative); OCCULT BLOOD,URINE TRACE-INTACT (Negative); PH,URINE 8.5 (5.0-8.0); PROTEIN,URINE 3+ (Negative); UROBILINOGEN,URINE 0.2 (0.2-1.0)
[2022-10-13 22:14] LABS: BACTERIA,URINE MANY /hpf (FEW); MUCUS,URINE RARE /hpf (FEW); SQUAMOUS EPITHELIAL CELLS,UR 0-5 /hpf (0-5); WBC CLUMPS,URINE FEW /hpf (NOT SEEN)
[2022-10-13] MEDS ORDERED: LORazepam 0.5 MG Tab PO ONE (23:00)
[2022-10-13] MEDS ORDERED: Cephalexin 500 MG Cap PO ONE (23:00)
== END 2022-10-13 23:14 | disposition home or self-care (01) ==
LOC: JD.ED 20:44
DX: F41.9 Anxiety disorder, unspecified (principal); N39.0 Urinary tract infection, site not specified; Z86.16 Personal history of COVID-19; Z91.040 Latex allergy status; Z88.2 Allergy status to sulfonamides; Z88.1 Allergy status to other antibiotic agents
CPT/HCPCS: 36415; 70450; 80053; 81001; 85025; 86140; 87086; 87088; 87186; 99284; A9270

== ENCOUNTER 2022-12-25 14:15 | Emergency (ER) | payer BC, MEDICARE, MEDICAID ==
[2022-12-25 15:12] LABS: BASOPHILS ABSOLUTE AUTO 0.02 K/mm3 (0.01-0.08); BASOPHILS PERCENT AUTO 0.4 % (0.1-1.2); EOSINOPHILS ABSOLUTE AUTO 0.26 K/mm3 (0.04-0.36); EOSINOPHILS PERCENT AUTO 4.7 (0.7-5.8); HEMATOCRIT 31.3 % (34.1-44.9); IMMATURE GRAN ABSOLUTE AUTO 0.01 K/mm3 (0.00-0.10); IMMATURE GRAN PERCENT AUTO 0.2 % (<=1.0); LYMPHOCYTES ABSOLUTE AUTO 1.14 K/mm3 (1.18-3.74); LYMPHOCYTES PERCENT AUTO 20.5 % (19.3-51.7); MEAN CORPUSCULAR HEMOGLOBIN 28.8 pg (25.6-32.2); MEAN CORPUSCULAR HGB CONC 31.9 g/dl (32.2-35.5); MEAN CORPUSCULAR VOLUME 90.2 fl (79.4-94.8); MEAN PLATELET VOLUME 9.6 fl (9.4-12.3); MONOCYTES ABSOLUTE AUTO 0.32 K/mm3 (0.24-0.36); MONOCYTES PERCENT AUTO 5.8 % (4.7-12.5); NEUTROPHILS ABSOLUTE AUTO 3.81 K/mm3 (1.56-6.13); NEUTROPHILS PERCENT AUTO 68.4 % (34.0-71.1); PLATELET COUNT,PLT 212 K/mm3 (182-369); RED BLOOD CELL COUNT 3.47 M/mm3 (3.98-5.22); WHITE BLOOD CELL COUNT,WBC 5.56 K/mm3 (3.98-10.04)
[2022-12-25 15:19] LABS: INR 0.99; PROTHROMBIN TIME 10.6 SECONDS (9.7-12.0)
[2022-12-25 15:20] LABS: PTT,PARTIAL THROMBOPLSTIN TIME 28.2 SECONDS (21.7-31.4)
[2022-12-25 15:35] LABS: A/G RATIO 1.2 (1-2); ALBUMIN 3.7 g/dl (3.4-5.0); ANION GAP 17.8 (5-15); BILIRUBIN TOTAL 0.4 mg/dL (0.2-1.0); BUN/CREATININE RATIO 9.7 (14-18); CALCIUM 8.6 mg/dL (8.5-10.1); CREATININE 6.1 mg/dL (0.55-1.02); EST CRCL DRUG DOSING (CG) 11.54 mL/min; MAGNESIUM 1.9 mg/dL (1.8-2.4); POTASSIUM,K 4.8 mEq/L (3.5-5.1); PROTEIN TOTAL,TP 6.8 g/dl (6.4-8.2)
== END 2022-12-25 17:25 | disposition home or self-care (01) ==
LOC: JD.ED 14:15
DX: R07.89 Other chest pain (principal); R51.9 Headache, unspecified; Z86.16 Personal history of COVID-19; Z88.2 Allergy status to sulfonamides; Z91.040 Latex allergy status; Z88.8 Allergy status to other drugs, medicaments and biological substances
CPT/HCPCS: 36415; 71045; 71045-26; 80053; 83735; 83880; 84484; 85025; 85610; 85730; 93005; 93010; 99284; 99285

== ENCOUNTER 2023-04-06 17:46 | Emergency (ER) | payer BC, MEDICARE, MEDICAID ==
[2023-04-06 18:51] LABS: INFLUENZA A NAA NEGATIVE (NEGATIVE); RESPIRATORY SYNCYTIAL VIR NAA NEGATIVE (NEGATIVE)
[2023-04-06 19:11] LABS: CORONAVIRUS COVID-19 NAA POSITIVE (NEGATIVE)
[2023-04-06 19:16] LABS: BASOPHILS PERCENT AUTO 0.3 % (0.0-1.0); EOSINOPHILS ABSOLUTE AUTO 0.2 K/mm3 (0.0-0.4); EOSINOPHILS PERCENT AUTO 2.5 % (0.0-6.0); HEMATOCRIT 32.2 % (37.0-47.0); HEMOGLOBIN 10.5 gm/dl (12.0-16.0); IMMATURE GRAN ABSOLUTE AUTO 0.02 K/mm3 (0.00-0.05); IMMATURE GRAN PERCENT AUTO 0.3 % (0.0-0.4); LYMPHOCYTES ABSOLUTE AUTO 0.3 K/mm3 (1.0-4.8); MEAN CORPUSCULAR HEMOGLOBIN 29.6 pg (28.0-32.0); MEAN CORPUSCULAR HGB CONC 32.6 g/dl (32.0-36.0); MEAN CORPUSCULAR VOLUME 90.7 fl (83.0-99.0); MEAN PLATELET VOLUME 9.2 fl (9.4-12.3); MONOCYTES ABSOLUTE AUTO 0.3 K/mm3 (0.0-0.8); NEUTROPHILS ABSOLUTE AUTO 5.6 K/mm3 (1.8-7.7); NEUTROPHILS PERCENT AUTO 88.9 % (41.0-71.0); PLATELET COUNT,PLT 135 K/mm3 (150-400); RED BLOOD CELL COUNT 3.55 M/mm3 (4.10-5.30); WHITE BLOOD CELL COUNT,WBC 6.31 K/mm3 (3.9-11.3)
[2023-04-06 19:41] LABS: A/G RATIO 1.2 (1-2); ALANINE AMINOTRANSFERASE,ALT 12 U/L (14-59); ALBUMIN 3.5 g/dl (3.4-5.0); ALKALINE PHOSPHATASE 99 U/L (46-116); ANION GAP 19.3 (5-15); ASPARTATE AMNIOTRANSFERASE,AST 10 U/L (15-37); BILIRUBIN TOTAL 0.3 mg/dL (0.2-1.0); BLOOD UREA NITROGEN,BUN 69 mg/dL (7-18); C-REACTIVE PROTEIN <0.2 mg/dL (<1.0); CARBON DIOXIDE,CO2 16 mEq/L (21-32); CHLORIDE,CL 107 mEq/L (98-107); CREATININE 6.9 mg/dL (0.55-1.02); ESTIMATED GFR 8 mL/min (>60); GLUCOSE RANDOM 95 mg/dL (70-99); MAGNESIUM 1.7 mg/dL (1.8-2.4); POTASSIUM,K 4.3 mEq/L (3.5-5.1); PROTEIN TOTAL,TP 6.4 g/dl (6.4-8.2); SODIUM,NA 138 mEq/L (136-145)
[2023-04-06] MEDS ORDERED: HYDROmorphone 0.5 MG/0.5 ML Syringe IVPUSH ONE (20:15)
[2023-04-06] MEDS ORDERED: REMDESIVIR 200 MG in Sodium Chloride 0.9% 250 ML IV ONE (20:15)
== END 2023-04-06 21:35 | disposition home or self-care (01) ==
LOC: JD.ED 17:46
DX: U07.1 COVID-19 (principal); N18.6 End stage renal disease; Z99.2 Dependence on renal dialysis; I10 Essential (primary) hypertension; F17.210 Nicotine dependence, cigarettes, uncomplicated; Z86.16 Personal history of COVID-19; Z79.899 Other long term (current) drug therapy; Z88.2 Allergy status to sulfonamides; Z91.040 Latex allergy status; Z88.8 Allergy status to other drugs, medicaments and biological substances
CPT/HCPCS: 0241U; 36415; 71046; 80053; 83735; 85025; 86140; 96365; 96375; 99283; J0248; J1170; J7050; 99284

== ENCOUNTER 2023-06-22 09:26 | Emergency (ER) | payer BC, MEDICARE, MEDICAID ==
[2023-06-22 10:21] LABS: BASOPHILS PERCENT AUTO 0.4 % (0.0-1.0); EOSINOPHILS ABSOLUTE AUTO 0.3 K/mm3 (0.0-0.4); HEMATOCRIT 33.3 % (37.0-47.0); HEMOGLOBIN 10.4 gm/dl (12.0-16.0); IMMATURE GRAN ABSOLUTE AUTO 0.02 K/mm3 (0.00-0.05); IMMATURE GRAN PERCENT AUTO 0.3 % (0.0-0.4); LYMPHOCYTES ABSOLUTE AUTO 1.1 K/mm3 (1.0-4.8); LYMPHOCYTES PERCENT AUTO 16.5 % (24.0-44.0); MEAN CORPUSCULAR HEMOGLOBIN 29.5 pg (28.0-32.0); MEAN CORPUSCULAR HGB CONC 31.2 g/dl (32.0-36.0); MEAN CORPUSCULAR VOLUME 94.3 fl (83.0-99.0); MEAN PLATELET VOLUME 9.6 fl (9.4-12.3); MONOCYTES ABSOLUTE AUTO 0.3 K/mm3 (0.0-0.8); MONOCYTES PERCENT AUTO 4.2 % (0.0-8.0); NEUTROPHILS PERCENT AUTO 74.6 % (41.0-71.0); PLATELET COUNT,PLT 146 K/mm3 (150-400); RED BLOOD CELL COUNT 3.53 M/mm3 (4.10-5.30); WHITE BLOOD CELL COUNT,WBC 6.67 K/mm3 (3.9-11.3)
[2023-06-22 10:41] LABS: A/G RATIO 1.3 (1-2); ALBUMIN 3.9 g/dl (3.4-5.0); ANION GAP 20.3 (5-15); BILIRUBIN TOTAL 0.4 mg/dL (0.2-1.0); BUN/CREATININE RATIO 10.7 (14-18); CREATININE 6.7 mg/dL (0.55-1.02); EST CRCL DRUG DOSING (CG) 10.42 mL/min; MAGNESIUM 1.8 mg/dL (1.8-2.4); PHOSPHORUS 5.7 mg/dL (2.6-4.7); POTASSIUM,K 4.3 mEq/L (3.5-5.1); PROTEIN TOTAL,TP 6.9 g/dl (6.4-8.2)
== END 2023-06-22 11:43 | disposition home or self-care (01) ==
LOC: JD.ED 09:26
DX: I12.0 Hypertensive chronic kidney disease with stage 5 chronic kidney disease or end stage renal disease (principal); N18.6 End stage renal disease; Z99.2 Dependence on renal dialysis; Z86.16 Personal history of COVID-19; Z79.899 Other long term (current) drug therapy; Z88.2 Allergy status to sulfonamides; Z88.1 Allergy status to other antibiotic agents; Z88.8 Allergy status to other drugs, medicaments and biological substances; Z91.040 Latex allergy status
CPT/HCPCS: 36415; 80053; 83735; 84100; 85025; 99283

== ENCOUNTER 2023-06-25 11:18 | Emergency (ER) | payer BC, MEDICARE, MEDICAID ==
[2023-06-25] MEDS: hydrOXYzine HCl 25 MG Tab PO ONE (12:16)
== END 2023-06-25 12:28 | disposition home or self-care (01) ==
LOC: JD.ED 11:18
DX: F41.9 Anxiety disorder, unspecified (principal); I12.9 Hypertensive chronic kidney disease with stage 1 through stage 4 chronic kidney disease, or unspecified chronic kidney disease; N18.9 Chronic kidney disease, unspecified; Z86.16 Personal history of COVID-19; Z79.899 Other long term (current) drug therapy; Z88.1 Allergy status to other antibiotic agents; Z88.2 Allergy status to sulfonamides; Z91.040 Latex allergy status
CPT/HCPCS: 99283; A9270

== ENCOUNTER 2023-08-23 09:40 | Emergency (ER) | payer BC, MEDICARE, MEDICAID ==
[2023-08-23 10:18] LABS: BASOPHILS PERCENT AUTO 0.4 % (0.0-1.0); EOSINOPHILS ABSOLUTE AUTO 0.5 K/mm3 (0.0-0.4); EOSINOPHILS PERCENT AUTO 4.5 % (0.0-6.0); HEMATOCRIT 34.8 % (37.0-47.0); HEMOGLOBIN 11.3 gm/dl (12.0-16.0); IMMATURE GRAN ABSOLUTE AUTO 0.03 K/mm3 (0.00-0.05); IMMATURE GRAN PERCENT AUTO 0.3 % (0.0-0.4); LYMPHOCYTES ABSOLUTE AUTO 1.5 K/mm3 (1.0-4.8); LYMPHOCYTES PERCENT AUTO 14.6 % (24.0-44.0); MEAN CORPUSCULAR HGB CONC 32.5 g/dl (32.0-36.0); MEAN CORPUSCULAR VOLUME 89.5 fl (83.0-99.0); MEAN PLATELET VOLUME 9.6 fl (9.4-12.3); MONOCYTES ABSOLUTE AUTO 0.5 K/mm3 (0.0-0.8); MONOCYTES PERCENT AUTO 4.9 % (0.0-8.0); NEUTROPHILS ABSOLUTE AUTO 7.5 K/mm3 (1.8-7.7); NEUTROPHILS PERCENT AUTO 75.3 % (41.0-71.0); PLATELET COUNT,PLT 191 K/mm3 (150-400); RED BLOOD CELL COUNT 3.89 M/mm3 (4.10-5.30); WHITE BLOOD CELL COUNT,WBC 9.99 K/mm3 (3.9-11.3)
[2023-08-23 10:38] LABS: A/G RATIO 1.2 (1-2); ALBUMIN 3.8 g/dl (3.4-5.0); ANION GAP 21.7 (5-15); BILIRUBIN TOTAL 0.5 mg/dL (0.2-1.0); BUN/CREATININE RATIO 9.7 (14-18); C-REACTIVE PROTEIN 0.2 mg/dL (<0.30); CALCIUM 8.2 mg/dL (8.5-10.1); CREATININE 7.5 mg/dL (0.55-1.02); EST CRCL DRUG DOSING (CG) 9.3 mL/min; MAGNESIUM 2.1 mg/dL (1.8-2.4); POTASSIUM,K 3.7 mEq/L (3.5-5.1); PROTEIN TOTAL,TP 6.9 g/dl (6.4-8.2)
== END 2023-08-23 11:11 | disposition home or self-care (01) ==
LOC: JD.ED 09:40
DX: I12.0 Hypertensive chronic kidney disease with stage 5 chronic kidney disease or end stage renal disease (principal); N18.6 End stage renal disease; Z99.2 Dependence on renal dialysis; Z86.16 Personal history of COVID-19; Z79.899 Other long term (current) drug therapy; Z91.040 Latex allergy status; Z88.1 Allergy status to other antibiotic agents; Z88.8 Allergy status to other drugs, medicaments and biological substances
CPT/HCPCS: 36415; 80053; 83735; 85025; 86140; 99283; 99284

== ENCOUNTER 2023-09-04 13:25 | Emergency (ER) | payer BC, MEDICARE, MEDICAID ==
[2023-09-04 15:30] LABS: BASOPHILS PERCENT AUTO 0.5 % (0.0-1.0); EOSINOPHILS ABSOLUTE AUTO 0.4 K/mm3 (0.0-0.4); EOSINOPHILS PERCENT AUTO 4.7 % (0.0-6.0); HEMATOCRIT 34.2 % (37.0-47.0); IMMATURE GRAN ABSOLUTE AUTO 0.01 K/mm3 (0.00-0.05); IMMATURE GRAN PERCENT AUTO 0.1 % (0.0-0.4); LYMPHOCYTES ABSOLUTE AUTO 1.4 K/mm3 (1.0-4.8); MEAN CORPUSCULAR HGB CONC 32.2 g/dl (32.0-36.0); MEAN CORPUSCULAR VOLUME 90.2 fl (83.0-99.0); MEAN PLATELET VOLUME 9.6 fl (9.4-12.3); MONOCYTES ABSOLUTE AUTO 0.3 K/mm3 (0.0-0.8); MONOCYTES PERCENT AUTO 4.5 % (0.0-8.0); NEUTROPHILS ABSOLUTE AUTO 5.3 K/mm3 (1.8-7.7); NEUTROPHILS PERCENT AUTO 71.2 % (41.0-71.0); PLATELET COUNT,PLT 188 K/mm3 (150-400); RED BLOOD CELL COUNT 3.79 M/mm3 (4.10-5.30); WHITE BLOOD CELL COUNT,WBC 7.41 K/mm3 (3.9-11.3)
[2023-09-04 16:08] LABS: A/G RATIO 1.2 (1-2); ALBUMIN 3.8 g/dl (3.4-5.0); ANION GAP 23.2 (5-15); BILIRUBIN TOTAL 0.5 mg/dL (0.2-1.0); BUN/CREATININE RATIO 11.3 (14-18); CALCIUM 8.2 mg/dL (8.5-10.1); EST CRCL DRUG DOSING (CG) 9.97 mL/min; POTASSIUM,K 4.2 mEq/L (3.5-5.1)
[2023-09-04] MEDS: cefTRIAXone 1 GM in Sodium Chloride 0.9% 100 ML IV ONE (16:54)
[2023-09-04] MEDS: Calcium Gluconate 10% 1 GM/10 ML SDV IVPUSH ONE (16:55)
[2023-09-04] MEDS: HYDROmorphone 0.5 MG/0.5 ML Syringe IVPUSH ONE (16:55)
[2023-09-04] MEDS: Sodium Chloride 0.9% 10 ML Syringe FLUSH PRN (17:06)
[2023-09-04] MEDS: Calcium Gluconate 10% 1 GM/10 ML SDV ONE (18:12)
[2023-09-04] MEDS: HYDROmorphone 0.5 MG/0.5 ML Syringe ONE (18:12)
[2023-09-04] MEDS: Sodium Chloride 0.9% 100 ML ONE (18:13)
[2023-09-04] MEDS: cefTRIAXone 1 GM Vial ONE (18:13)
== END 2023-09-04 17:59 | disposition home or self-care (01) ==
LOC: JD.ED 13:25
DX: I12.0 Hypertensive chronic kidney disease with stage 5 chronic kidney disease or end stage renal disease (principal); N18.6 End stage renal disease; N39.0 Urinary tract infection, site not specified; Z99.2 Dependence on renal dialysis; Z79.899 Other long term (current) drug therapy; Z88.0 Allergy status to penicillin; Z88.2 Allergy status to sulfonamides; Z91.040 Latex allergy status; Z88.8 Allergy status to other drugs, medicaments and biological substances
CPT/HCPCS: 36415; 80053; 83735; 85025; 96365; 96375; 99284; J0612; J0696; J1170; J3490; 99285

== ENCOUNTER 2023-10-11 20:37 | Emergency (ER) | payer BC, MEDICARE, MEDICAID ==
[2023-10-11 21:42] LABS: BASOPHILS PERCENT AUTO 0.4 % (0.0-1.0); EOSINOPHILS ABSOLUTE AUTO 0.4 K/mm3 (0.0-0.4); HEMATOCRIT 29.8 % (37.0-47.0); HEMOGLOBIN 9.6 gm/dl (12.0-16.0); IMMATURE GRAN ABSOLUTE AUTO 0.02 K/mm3 (0.00-0.05); IMMATURE GRAN PERCENT AUTO 0.3 % (0.0-0.4); LYMPHOCYTES ABSOLUTE AUTO 1.8 K/mm3 (1.0-4.8); LYMPHOCYTES PERCENT AUTO 25.4 % (24.0-44.0); MEAN CORPUSCULAR HEMOGLOBIN 29.2 pg (28.0-32.0); MEAN CORPUSCULAR HGB CONC 32.2 g/dl (32.0-36.0); MEAN CORPUSCULAR VOLUME 90.6 fl (83.0-99.0); MEAN PLATELET VOLUME 9.7 fl (9.4-12.3); MONOCYTES ABSOLUTE AUTO 0.3 K/mm3 (0.0-0.8); MONOCYTES PERCENT AUTO 4.5 % (0.0-8.0); NEUTROPHILS ABSOLUTE AUTO 4.4 K/mm3 (1.8-7.7); NEUTROPHILS PERCENT AUTO 63.4 % (41.0-71.0); PLATELET COUNT,PLT 180 K/mm3 (150-400); RED BLOOD CELL COUNT 3.29 M/mm3 (4.10-5.30); WHITE BLOOD CELL COUNT,WBC 6.89 K/mm3 (3.9-11.3)
[2023-10-11 22:06] LABS: A/G RATIO 1.3 (1-2); ALBUMIN 3.9 g/dl (3.4-5.0); ANION GAP 17.9 (5-15); BILIRUBIN TOTAL 0.4 mg/dL (0.2-1.0); BUN/CREATININE RATIO 10.4 (14-18); CALCIUM 8.2 mg/dL (8.5-10.1); CREATININE 7.2 mg/dL (0.55-1.02); EST CRCL DRUG DOSING (CG) 8.8 mL/min; MAGNESIUM 2.1 mg/dL (1.8-2.4); POTASSIUM,K 3.9 mEq/L (3.5-5.1); PROTEIN TOTAL,TP 6.8 g/dl (6.4-8.2)
[2023-10-11] MEDS ORDERED: Ondansetron 4 MG Tab.DIS PO ONE (22:16)
== END 2023-10-11 22:26 | disposition home or self-care (01) ==
LOC: JD.ED 20:37
DX: I12.0 Hypertensive chronic kidney disease with stage 5 chronic kidney disease or end stage renal disease (principal); N18.6 End stage renal disease; Z99.2 Dependence on renal dialysis; Z79.899 Other long term (current) drug therapy; Z88.2 Allergy status to sulfonamides; Z91.040 Latex allergy status; Z88.8 Allergy status to other drugs, medicaments and biological substances
CPT/HCPCS: 36415; 80053; 83735; 85025; 99283; 99285

== ENCOUNTER 2023-11-02 10:22 | Emergency (ER) | payer BC, MEDICARE, MEDICAID ==
[2023-11-02 11:12] LABS: BASOPHILS PERCENT AUTO 0.6 % (0.0-1.0); EOSINOPHILS ABSOLUTE AUTO 0.2 K/mm3 (0.0-0.4); EOSINOPHILS PERCENT AUTO 4.5 % (0.0-6.0); HEMATOCRIT 27.7 % (37.0-47.0); HEMOGLOBIN 8.8 gm/dl (12.0-16.0); IMMATURE GRAN ABSOLUTE AUTO 0.02 K/mm3 (0.00-0.05); IMMATURE GRAN PERCENT AUTO 0.4 % (0.0-0.4); LYMPHOCYTES ABSOLUTE AUTO 1.2 K/mm3 (1.0-4.8); LYMPHOCYTES PERCENT AUTO 22.6 % (24.0-44.0); MEAN CORPUSCULAR HEMOGLOBIN 28.9 pg (28.0-32.0); MEAN CORPUSCULAR HGB CONC 31.8 g/dl (32.0-36.0); MEAN CORPUSCULAR VOLUME 90.8 fl (83.0-99.0); MEAN PLATELET VOLUME 9.6 fl (9.4-12.3); MONOCYTES ABSOLUTE AUTO 0.2 K/mm3 (0.0-0.8); MONOCYTES PERCENT AUTO 4.5 % (0.0-8.0); NEUTROPHILS ABSOLUTE AUTO 3.5 K/mm3 (1.8-7.7); NEUTROPHILS PERCENT AUTO 67.4 % (41.0-71.0); PLATELET COUNT,PLT 161 K/mm3 (150-400); RED BLOOD CELL COUNT 3.05 M/mm3 (4.10-5.30); WHITE BLOOD CELL COUNT,WBC 5.13 K/mm3 (3.9-11.3)
[2023-11-02] MEDS: Ondansetron 4 MG Tab.DIS PO ONE (11:14)
[2023-11-02 11:38] LABS: A/G RATIO 1.4 (1-2); ALBUMIN 3.9 g/dl (3.4-5.0); ANION GAP 19.2 (5-15); BILIRUBIN TOTAL 0.6 mg/dL (0.2-1.0); BUN/CREATININE RATIO 9.9 (14-18); CALCIUM 8.2 mg/dL (8.5-10.1); CREATININE 7.6 mg/dL (0.55-1.02); EST CRCL DRUG DOSING (CG) 9.18 mL/min; MAGNESIUM 2.2 mg/dL (1.8-2.4); POTASSIUM,K 4.2 mEq/L (3.5-5.1); PROTEIN TOTAL,TP 6.7 g/dl (6.4-8.2)
== END 2023-11-02 13:09 | disposition home or self-care (01) ==
LOC: SUPCPDRO 10:22 → JD.ED 10:22
DX: I12.9 Hypertensive chronic kidney disease with stage 1 through stage 4 chronic kidney disease, or unspecified chronic kidney disease (principal); N18.6 End stage renal disease; D63.1 Anemia in chronic kidney disease; R11.0 Nausea; Z99.2 Dependence on renal dialysis; Z91.040 Latex allergy status; Z88.2 Allergy status to sulfonamides; Z88.8 Allergy status to other drugs, medicaments and biological substances
CPT/HCPCS: 36415; 80053; 83735; 85025; 99283; A9270

== ENCOUNTER 2023-11-17 20:44 | Emergency (ER) | payer BC, MEDICARE, MEDICAID ==
[2023-11-17] MEDS: Dextrose 5%-0.9% NaCl 1,000 ML IV SCH (21:42)
[2023-11-17 21:46] LABS: APPEARANCE,URINE CLOUDY (Clear); BILIRUBIN,URINE NEGATIVE (Negative); COLOR,URINE YELLOW (Yellow); GLUCOSE,URINE NEGATIVE (Negative); KETONES,URINE NEGATIVE (Negative); LEUKOCYTE ESTERASE,URINE 2+ (Negative); NITRITE,URINE NEGATIVE (Negative); OCCULT BLOOD,URINE 1+ (Negative); PROTEIN,URINE 3+ (Negative); UROBILINOGEN,URINE 0.2 (0.2-1.0)
[2023-11-17 21:58] LABS: RBC,URINE 20-30 /hpf (0-5); WBC,URINE >100 /hpf (0-5)
[2023-11-17 21:59] LABS: BACTERIA,URINE MANY /hpf (FEW); MUCUS,URINE NOT SEEN /hpf (FEW)
[2023-11-17 22:00] LABS: A/G RATIO 1.4 (1-2); ALANINE AMINOTRANSFERASE,ALT 14 U/L (14-59); ALKALINE PHOSPHATASE 107 U/L (46-116); ANION GAP 20.9 (5-15); ASPARTATE AMNIOTRANSFERASE,AST 6 U/L (15-37); BILIRUBIN TOTAL 0.6 mg/dL (0.2-1.0); BLOOD UREA NITROGEN,BUN 73 mg/dL (7-18); BUN/CREATININE RATIO 9.6 (14-18); CALCIUM 8.1 mg/dL (8.5-10.1); CARBON DIOXIDE,CO2 14 mEq/L (21-32); CHLORIDE,CL 107 mEq/L (98-107); CREATININE 7.6 mg/dL (0.55-1.02); EST CRCL DRUG DOSING (CG) 10.03 mL/min; ESTIMATED GFR 7 mL/min (>60); GLUCOSE RANDOM 86 mg/dL (70-99); MAGNESIUM 2.1 mg/dL (1.8-2.4); POTASSIUM,K 3.9 mEq/L (3.5-5.1); PROTEIN TOTAL,TP 6.8 g/dl (6.4-8.2); SODIUM,NA 138 mEq/L (136-145)
[2023-11-17 22:02] LABS: LACTIC ACID 0.4 mmol/L (0.4-2.0)
[2023-11-17 22:03] LABS: C-REACTIVE PROTEIN < 0.05 mg/dL (<0.30)
[2023-11-17 22:04] LABS: BASOPHILS PERCENT AUTO 0.4 % (0.0-1.0); EOSINOPHILS ABSOLUTE AUTO 0.4 K/mm3 (0.0-0.4); EOSINOPHILS PERCENT AUTO 5.7 % (0.0-6.0); HEMATOCRIT 31.3 % (37.0-47.0); IMMATURE GRAN ABSOLUTE AUTO 0.01 K/mm3 (0.00-0.05); IMMATURE GRAN PERCENT AUTO 0.1 % (0.0-0.4); LYMPHOCYTES ABSOLUTE AUTO 2.1 K/mm3 (1.0-4.8); LYMPHOCYTES PERCENT AUTO 29.6 % (24.0-44.0); MEAN CORPUSCULAR HEMOGLOBIN 29.6 pg (28.0-32.0); MEAN CORPUSCULAR HGB CONC 31.9 g/dl (32.0-36.0); MEAN CORPUSCULAR VOLUME 92.6 fl (83.0-99.0); MEAN PLATELET VOLUME 9.8 fl (9.4-12.3); MONOCYTES ABSOLUTE AUTO 0.3 K/mm3 (0.0-0.8); MONOCYTES PERCENT AUTO 4.5 % (0.0-8.0); NEUTROPHILS ABSOLUTE AUTO 4.3 K/mm3 (1.8-7.7); NEUTROPHILS PERCENT AUTO 59.7 % (41.0-71.0); PLATELET COUNT,PLT 156 K/mm3 (150-400); RED BLOOD CELL COUNT 3.38 M/mm3 (4.10-5.30); WHITE BLOOD CELL COUNT,WBC 7.17 K/mm3 (3.9-11.3)
[2023-11-17] MEDS: cefTRIAXone 1 GM in Sodium Chloride 0.9% 100 ML IV ONE (22:28)
[2023-11-18 03:04] LABS: BARBITURATE SCREEN,URINE NEGATIVE (CUTOFF=200); BENZODIAZEPINES SCREEN,URINE NEGATIVE (CUTOFF=150); BUPRENORPHINE SCREEN,URINE NEGATIVE (CUTOFF=10); METHADONE SCREEN, URINE NEGATIVE (CUTOFF=200); METHAMPHETAMINES SCREEN, URINE NEGATIVE (CUTOFF=500); OXYCODONE SCREEN,URINE NEGATIVE (CUT0FF=100); THC SCREEN,URINE 20 NG/ML NEGATIVE (CUTOFF=50)
[2023-11-18 03:06] LABS: AMPHETAMINES SCREEN, URINE NEGATIVE (CUTOFF=500)
== END 2023-11-18 00:56 ==
LOC: JD.ED 20:44
DX: I12.9 Hypertensive chronic kidney disease with stage 1 through stage 4 chronic kidney disease, or unspecified chronic kidney disease (principal); N18.9 Chronic kidney disease, unspecified; R39.2 Extrarenal uremia; Z91.040 Latex allergy status; Z88.2 Allergy status to sulfonamides; Z88.8 Allergy status to other drugs, medicaments and biological substances; Z79.899 Other long term (current) drug therapy; Z99.2 Dependence on renal dialysis
CPT/HCPCS: 36415; 80053; 80306; 81001; 83605; 83735; 85025; 86140; 87040; 87086; 93005; 96361; 96365; 99285; J0696; J3490; J7042

== ENCOUNTER 2023-12-19 10:45 | Emergency (ER) | payer BC, MEDICARE, MEDICAID ==
[2023-12-19 11:27] LABS: BASOPHILS PERCENT AUTO 0.8 % (0.0-1.0); EOSINOPHILS ABSOLUTE AUTO 0.2 K/mm3 (0.0-0.4); EOSINOPHILS PERCENT AUTO 4.7 % (0.0-6.0); HEMATOCRIT 34.7 % (37.0-47.0); HEMOGLOBIN 11.2 gm/dl (12.0-16.0); IMMATURE GRAN ABSOLUTE AUTO 0.01 K/mm3 (0.00-0.05); IMMATURE GRAN PERCENT AUTO 0.2 % (0.0-0.4); LYMPHOCYTES PERCENT AUTO 19.7 % (24.0-44.0); MEAN CORPUSCULAR HEMOGLOBIN 30.5 pg (28.0-32.0); MEAN CORPUSCULAR HGB CONC 32.3 g/dl (32.0-36.0); MEAN CORPUSCULAR VOLUME 94.6 fl (83.0-99.0); MEAN PLATELET VOLUME 9.3 fl (9.4-12.3); MONOCYTES ABSOLUTE AUTO 0.2 K/mm3 (0.0-0.8); MONOCYTES PERCENT AUTO 4.5 % (0.0-8.0); NEUTROPHILS ABSOLUTE AUTO 3.6 K/mm3 (1.8-7.7); NEUTROPHILS PERCENT AUTO 70.1 % (41.0-71.0); PLATELET COUNT,PLT 147 K/mm3 (150-400); RED BLOOD CELL COUNT 3.67 M/mm3 (4.10-5.30); WHITE BLOOD CELL COUNT,WBC 5.07 K/mm3 (3.9-11.3)
[2023-12-19 11:52] LABS: A/G RATIO 1.5 (1-2); ALBUMIN 3.8 g/dl (3.4-5.0); ANION GAP 19.6 (5-15); BILIRUBIN TOTAL 0.6 mg/dL (0.2-1.0); BUN/CREATININE RATIO 8.7 (14-18); CALCIUM 8.1 mg/dL (8.5-10.1); CREATININE 6.9 mg/dL (0.55-1.02); EST CRCL DRUG DOSING (CG) 10.11 mL/min; MAGNESIUM 2.3 mg/dL (1.8-2.4); POTASSIUM,K 4.6 mEq/L (3.5-5.1); PROTEIN TOTAL,TP 6.4 g/dl (6.4-8.2)
== END 2023-12-19 12:35 | disposition home or self-care (01) ==
LOC: JD.ED 10:45
DX: N17.9 Acute kidney failure, unspecified (principal); Z99.2 Dependence on renal dialysis; I10 Essential (primary) hypertension; Z88.2 Allergy status to sulfonamides; Z88.8 Allergy status to other drugs, medicaments and biological substances; Z91.040 Latex allergy status; Z79.899 Other long term (current) drug therapy
CPT/HCPCS: 36415; 80053; 83735; 85025; 99282; 99285

== ENCOUNTER 2023-12-27 15:51 | Emergency (ER) | payer BC, MEDICARE, MEDICAID ==
[2023-12-27 16:58] LABS: BASOPHILS PERCENT AUTO 0.5 % (0.0-1.0); EOSINOPHILS ABSOLUTE AUTO 0.4 K/mm3 (0.0-0.4); EOSINOPHILS PERCENT AUTO 5.9 % (0.0-6.0); HEMATOCRIT 33.3 % (37.0-47.0); HEMOGLOBIN 10.7 gm/dl (12.0-16.0); IMMATURE GRAN ABSOLUTE AUTO 0.02 K/mm3 (0.00-0.05); IMMATURE GRAN PERCENT AUTO 0.3 % (0.0-0.4); LYMPHOCYTES ABSOLUTE AUTO 1.4 K/mm3 (1.0-4.8); LYMPHOCYTES PERCENT AUTO 23.5 % (24.0-44.0); MEAN CORPUSCULAR HEMOGLOBIN 29.6 pg (28.0-32.0); MEAN CORPUSCULAR HGB CONC 32.1 g/dl (32.0-36.0); MEAN CORPUSCULAR VOLUME 92.2 fl (83.0-99.0); MEAN PLATELET VOLUME 9.6 fl (9.4-12.3); MONOCYTES ABSOLUTE AUTO 0.3 K/mm3 (0.0-0.8); MONOCYTES PERCENT AUTO 4.9 % (0.0-8.0); NEUTROPHILS ABSOLUTE AUTO 3.9 K/mm3 (1.8-7.7); NEUTROPHILS PERCENT AUTO 64.9 % (41.0-71.0); PLATELET COUNT,PLT 139 K/mm3 (150-400); RED BLOOD CELL COUNT 3.61 M/mm3 (4.10-5.30); WHITE BLOOD CELL COUNT,WBC 6.08 K/mm3 (3.9-11.3)
[2023-12-27 17:19] LABS: A/G RATIO 1.5 (1-2); ALBUMIN 3.9 g/dl (3.4-5.0); ANION GAP 17.6 (5-15); BILIRUBIN TOTAL 0.4 mg/dL (0.2-1.0); BUN/CREATININE RATIO 12.4 (14-18); CALCIUM 8.2 mg/dL (8.5-10.1); CREATININE 7.6 mg/dL (0.55-1.02); EST CRCL DRUG DOSING (CG) 9.18 mL/min; MAGNESIUM 2.3 mg/dL (1.8-2.4); POTASSIUM,K 5.6 mEq/L (3.5-5.1); PROTEIN TOTAL,TP 6.5 g/dl (6.4-8.2)
[2023-12-27] MEDS: Sodium Zirconium Cyclosilicate 10 GM Packet PO ONE (18:30)
[2023-12-27] MEDS: Sodium Zirconium Cyclosilicate 10 GM Packet PO SCH (18:31)
== END 2023-12-27 18:58 | disposition home or self-care (01) ==
LOC: JD.ED 15:51
DX: E87.5 Hyperkalemia (principal); I12.0 Hypertensive chronic kidney disease with stage 5 chronic kidney disease or end stage renal disease; N18.6 End stage renal disease; E87.20 Acidosis, unspecified; Z99.2 Dependence on renal dialysis; Z88.2 Allergy status to sulfonamides; Z91.040 Latex allergy status; Z88.8 Allergy status to other drugs, medicaments and biological substances; Z79.899 Other long term (current) drug therapy
CPT/HCPCS: 36415; 80053; 83735; 85025; 99283; J3490

== ENCOUNTER 2024-09-20 09:09 | Emergency (ER) | payer MEDICARE, BC, MEDICAID | END 2024-09-20 10:19 | disposition home or self-care (01) | LOC: JD.ED 09:09 | DX: J20.8 Acute bronchitis due to other specified organisms (principal); I12.0 Hypertensive chronic kidney disease with stage 5 chronic kidney disease or end stage renal disease; N18.6 End stage renal disease; Z88.8 Allergy status to other drugs, medicaments and biological substances; Z91.040 Latex allergy status; Z88.2 Allergy status to sulfonamides; Z79.899 Other long term (current) drug therapy; Z99.2 Dependence on renal dialysis | CPT/HCPCS: 71045; 71045-26; 99283 ==

== ENCOUNTER 2024-11-01 17:58 | Emergency (ER) | payer MEDICARE, BC, MEDICAID ==
[2024-11-01 19:09] LABS: BASOPHILS PERCENT AUTO 0.5 % (0.0-1.0); EOSINOPHILS ABSOLUTE AUTO 0.4 K/mm3 (0.0-0.4); EOSINOPHILS PERCENT AUTO 5.6 % (0.0-6.0); HEMATOCRIT 29.1 % (37.0-47.0); HEMOGLOBIN 9.5 gm/dl (12.0-16.0); IMMATURE GRAN ABSOLUTE AUTO 0.03 K/mm3 (0.00-0.05); IMMATURE GRAN PERCENT AUTO 0.5 % (0.0-0.4); LYMPHOCYTES ABSOLUTE AUTO 1.4 K/mm3 (1.0-4.8); LYMPHOCYTES PERCENT AUTO 22.4 % (24.0-44.0); MEAN CORPUSCULAR HEMOGLOBIN 30.1 pg (28.0-32.0); MEAN CORPUSCULAR HGB CONC 32.6 g/dl (32.0-36.0); MEAN CORPUSCULAR VOLUME 92.1 fl (83.0-99.0); MEAN PLATELET VOLUME 9.5 fl (9.4-12.3); MONOCYTES ABSOLUTE AUTO 0.3 K/mm3 (0.0-0.8); MONOCYTES PERCENT AUTO 5.3 % (0.0-8.0); NEUTROPHILS ABSOLUTE AUTO 4.2 K/mm3 (1.8-7.7); NEUTROPHILS PERCENT AUTO 65.7 % (41.0-71.0); PLATELET COUNT,PLT 177 K/mm3 (150-400); RED BLOOD CELL COUNT 3.16 M/mm3 (4.10-5.30); WHITE BLOOD CELL COUNT,WBC 6.38 K/mm3 (3.9-11.3)
[2024-11-01 19:29] LABS: A/G RATIO 1.4 (1-2); ALBUMIN 3.8 g/dl (3.4-5.0); ANION GAP 19.6 (5-15); BILIRUBIN TOTAL 0.7 mg/dL (0.2-1.0); BUN/CREATININE RATIO 7.2 (14-18); CALCIUM 8.5 mg/dL (8.5-10.1); CREATININE 7.8 mg/dL (0.55-1.02); EST CRCL DRUG DOSING (CG) 9.28 mL/min; POTASSIUM,K 3.6 mEq/L (3.5-5.1); PROTEIN TOTAL,TP 6.5 g/dl (6.4-8.2)
[2024-11-01 20:23] LABS: BARBITURATE SCREEN,URINE NEGATIVE (CUTOFF=200); BENZODIAZEPINES SCREEN,URINE NEGATIVE (CUTOFF=150); BUPRENORPHINE SCREEN,URINE NEGATIVE (CUTOFF=10); METHADONE SCREEN, URINE NEGATIVE (CUTOFF=200); METHAMPHETAMINES SCREEN, URINE NEGATIVE (CUTOFF=500); OXYCODONE SCREEN,URINE NEGATIVE (CUT0FF=100); THC SCREEN,URINE 20 NG/ML NEGATIVE (CUTOFF=50)
[2024-11-01 20:35] LABS: AMPHETAMINES SCREEN, URINE NEGATIVE (CUTOFF=500)
== END 2024-11-01 20:54 | disposition home or self-care (01) ==
LOC: JD.ED 17:58
DX: R53.83 Other fatigue (principal); I10 Essential (primary) hypertension; E03.9 Hypothyroidism, unspecified; F17.210 Nicotine dependence, cigarettes, uncomplicated; Z91.040 Latex allergy status; Z88.2 Allergy status to sulfonamides; Z88.8 Allergy status to other drugs, medicaments and biological substances; Z79.51 Long term (current) use of inhaled steroids; Z79.899 Other long term (current) drug therapy
CPT/HCPCS: 80053; 80306; 85025; 99282

== ENCOUNTER 2024-11-30 08:51 | Emergency (ER) | payer MEDICARE, BC, MEDICAID | END 2024-11-30 09:20 | disposition home or self-care (01) | LOC: JD.ED 08:51 | DX: I12.0 Hypertensive chronic kidney disease with stage 5 chronic kidney disease or end stage renal disease (principal); N18.6 End stage renal disease; E03.9 Hypothyroidism, unspecified; Z99.2 Dependence on renal dialysis; Z91.040 Latex allergy status; Z88.2 Allergy status to sulfonamides; Z88.8 Allergy status to other drugs, medicaments and biological substances; Z79.899 Other long term (current) drug therapy; Z79.51 Long term (current) use of inhaled steroids; Z91.148 Patient's other noncompliance with medication regimen for other reason | CPT/HCPCS: 93005; 93010; 99284; 99285 ==

== ENCOUNTER 2025-02-02 08:18 | Emergency (ER) | payer MEDICARE, MEDICAID | END 2025-02-02 11:15 | disposition home or self-care (01) | LOC: JD.ED 08:18 | DX: K80.20 Calculus of gallbladder without cholecystitis without obstruction (principal); I12.0 Hypertensive chronic kidney disease with stage 5 chronic kidney disease or end stage renal disease; N18.6 End stage renal disease; Z99.2 Dependence on renal dialysis; Z91.158 Patient's noncompliance with renal dialysis for other reason; Z88.2 Allergy status to sulfonamides; Z91.040 Latex allergy status; Z88.8 Allergy status to other drugs, medicaments and biological substances; Z79.899 Other long term (current) drug therapy | CPT/HCPCS: 36415; 76705; 76705-26; 80069; 85018; 99284 ==

== ENCOUNTER 2025-02-04 11:43 | Emergency (ER) | payer MEDICARE, MEDICAID ==
[2025-02-04] MEDS ORDERED: Ketorolac 60 MG/2 ML SDV IVPUSH STA (13:06)
[2025-02-04 13:19] LABS: BASOPHILS ABSOLUTE AUTO 0.0 K/mm3 (0.0-0.2); BASOPHILS PERCENT AUTO 0.7 % (0.0-1.0); EOSINOPHILS ABSOLUTE AUTO 0.2 K/mm3 (0.0-0.4); EOSINOPHILS PERCENT AUTO 5.1 % (0.0-6.0); IMMATURE GRAN ABSOLUTE AUTO 0.00 K/mm3 (0.00-0.05); IMMATURE GRAN PERCENT AUTO 0.0 % (0.0-0.4); LYMPHOCYTES ABSOLUTE AUTO 0.9 K/mm3 (1.0-4.8); LYMPHOCYTES PERCENT AUTO 20.8 % (24.0-44.0); MEAN PLATELET VOLUME 9.9 fl (9.4-12.3); MONOCYTES ABSOLUTE AUTO 0.4 K/mm3 (0.0-0.8); MONOCYTES PERCENT AUTO 8.3 % (0.0-8.0); NEUTROPHILS ABSOLUTE AUTO 2.8 K/mm3 (1.8-7.7); NEUTROPHILS PERCENT AUTO 65.1 % (41.0-71.0); NRBC ABSOLUTE 0.00 (0.00-0.02); NRBC PERCENT 0.0 % (0.0-0.2); PLATELET COUNT,PLT 149 K/mm3 (150-400); RED BLOOD CELL COUNT 3.21 M/mm3 (4.10-5.30); WHITE BLOOD CELL COUNT,WBC 4.32 K/mm3 (3.9-11.3)
[2025-02-04 13:30] LABS: A/G RATIO 1.1 (1-2); ALANINE AMINOTRANSFERASE,ALT 23.0 U/L (14-59); ASPARTATE AMNIOTRANSFERASE,AST 16.0 U/L (15-37); BILIRUBIN TOTAL 0.6 mg/dL (0.2-1.0); BLOOD UREA NITROGEN,BUN 37.0 mg/dL (7-18); CARBON DIOXIDE,CO2 32.0 mEq/L (21-32); CHLORIDE,CL 104.0 mEq/L (98-107); CREATINE KINASE,CK 37.0 U/L (26-192); CREATININE 4.8 mg/dL (0.55-1.02); EST CRCL DRUG DOSING (CG) 14.42 mL/min; ESTIMATED GFR 12.0 mL/min (>60); GLUCOSE RANDOM 108.0 mg/dL (70-99); POTASSIUM,K 3.7 mEq/L (3.5-5.1); PROTEIN TOTAL,TP 6.4 g/dl (6.4-8.2); SODIUM,NA 144.0 mEq/L (136-145)
[2025-02-04] MEDS: Ondansetron 4 MG/2 ML SDV IVPUSH ONE (13:33)
[2025-02-04] MEDS: Ketorolac 30 MG/ML SDV IVPUSH STA (13:34)
[2025-02-04] MEDS ORDERED: Sodium Chloride 0.9% 10 ML Syringe FLUSH PRN (14:30)
[2025-02-04] MEDS ORDERED: Iopamidol 612 MG/ML 100 ML Bottle IVPUSH ONE (14:30)
== END 2025-02-04 16:15 | disposition home or self-care (01) ==
LOC: JD.ED 11:43
DX: R10.11 Right upper quadrant pain (principal); R10.33 Periumbilical pain; I12.0 Hypertensive chronic kidney disease with stage 5 chronic kidney disease or end stage renal disease; N18.6 End stage renal disease; E03.9 Hypothyroidism, unspecified; Z99.2 Dependence on renal dialysis; Z88.2 Allergy status to sulfonamides; Z88.8 Allergy status to other drugs, medicaments and biological substances; Z91.040 Latex allergy status; Z96.22 Myringotomy tube(s) status
CPT/HCPCS: 36415; 71045; 74176; 80053; 82550; 83690; 83735; 84703; 85025; 96361; 96374; 96375; 99284; J1885; J2405; J7030